=== PATIENT | male | born 1965 | race Caucasian/White ===

== ENCOUNTER 2017-11-08 11:57 | Emergency (ER) | payer OTHER | END 2017-11-08 13:07 | disposition home or self-care (01) | LOC: FTE 11:57 → E/R 13:07 | DX: J20.9 Acute bronchitis, unspecified (principal) | CPT/HCPCS: 99284; Z7502 ==

== ENCOUNTER 2018-05-19 12:30 | Emergency (ER) | payer OTHER ==
[2018-05-19] MEDS: KETOROLAC 30 MG INJ IM (13:21)
[2018-05-19] MEDS: HYDROmorphONE 0.5 MG/0.5 ML SYG IM (13:26)
[2018-05-19] MEDS: ONDANSETRON (ODT) 4 MG TAB ODT (13:26)
== END 2018-05-19 14:00 | disposition home or self-care (01) ==
LOC: FTE 12:30
DX: M54.5 Low back pain (principal)
CPT/HCPCS: 96372; 99284-25

== ENCOUNTER 2018-08-11 00:34 | Emergency (ER) | payer OTHER ==
[2018-08-11] MEDS: ACETAMINOPHEN 325 MG TAB PO (01:42)
== END 2018-08-11 02:33 | disposition home or self-care (01) ==
LOC: FTE 00:34
DX: J06.9 Acute upper respiratory infection, unspecified (principal)
CPT/HCPCS: 99283; Z7502

== ENCOUNTER 2018-12-07 09:25 | Emergency (ER) | payer OTHER | END 2018-12-07 10:07 | disposition home or self-care (01) | LOC: FTE 09:25 | DX: R05 Cough (principal) | CPT/HCPCS: 99283; Z7502 ==

== ENCOUNTER 2019-02-12 15:45 | Emergency (ER) | payer OTHER ==
[2019-02-12] MEDS: DIAZEPAM 5 MG TAB PO (17:43)
[2019-02-12] MEDS: traMADol 50 MG TAB PO (17:43)
[2019-02-12] MEDS: KETOROLAC 60 MG INJ IM (17:49)
== END 2019-02-12 18:38 | disposition home or self-care (01) ==
LOC: FTE 15:45
DX: M62.838 Other muscle spasm (principal); M54.9 Dorsalgia, unspecified
CPT/HCPCS: 96372; 99284-25